=== PATIENT | female | born 1970 | race Caucasian/White ===

== ENCOUNTER → 2017-08-15 | Outpatient (CLI) | payer BC ==
--- NOTE | 2017-08-16 01:11 | WWHP ---
[facility] - HISTORY AND PHYSICAL CHIEF COMPLAINT: The patient is here for her routine gynecologic exam and mammogram. HPI: This is a 46-year-old, G2, P2, with an LMP of 07/24/2017. The patient's is status post vasectomy. She states her periods are monthly, but a little less regular than in the past. PAST MEDICAL HISTORY: Left leg hemangioma which has been there for many years. MEDICATIONS: None. ALLERGIES: No known drug allergies. PAST SURGICAL HISTORY: Two surgeries for left leg hemangioma and previous tonsillectomy. 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 SOCIAL HISTORY: She denies tobacco and drug use and has about 1 alcohol containing drink per week. 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 FAMILY HISTORY: She has 2 maternal aunts who had breast cancer and an uncle who had prostate cancer. Her son and daughter were recently tested positive for BRCA gene and this was done because of her 's family history. REVIEW OF SYSTEMS: She has gained about 7 pounds over the last year. She denies respiratory, cardiac or GI problems. PHYSICAL EXAMINATION: Blood pressure 116/80, height 5 feet 6-1/2 inches, weight 142 pounds, BMI 23. Temperature 98.1, pulse 61. This is a well-developed, well-nourished white female, who is alert and oriented x3, in no acute distress. HEENT: Within normal limits. NECK: Supple without mass or thyromegaly. CHEST AND LUNGS: Clear to auscultation. HEART: Regular rate and rhythm. Breasts are without mass or discharge. Axillary exam is negative for adenopathy. BACK: Negative for CVA tenderness. ABDOMEN: Soft, nontender, without palpable masses. PELVIC EXAM: Normal external genitalia. Cervix and vagina appear normal. There is no evidence of prolapse. The uterus is mid position, nongravid size and nontender. There are no palpable adnexal masses or tenderness. Rectal exam is negative for mass or tenderness and is negative for occult blood. EXTREMITIES: Nontender. IMPRESSION: 1. A 46-year-old gynecologically healthy female whose is status post vasectomy. 2. Possible early perimenopause with slight menstrual irregularity. PLAN: 1. Pap smear was deferred since she had a normal one less than 2 years ago. 2. Self breast examination was discussed. 3. Screening mammogram will be done today. 4. We have discussed her children's BRCA testing, which was positive. They are planning to go to [facility] for counseling to further discuss the implications of this testing.. The patient risk should not be impacted by her children's BRCA testing, but I have recommended that she have yearly mammograms. 5. She will return in 1 year. ROBERT / DAMIN: [id number] / IMER
--- NOTE | 2017-08-16 11:44 | MM ---
Reason for exam: screening (asymptomatic). Last mammogram was performed 1 year and 5 months ago. Physical Findings: A clinical breast exam by your physician is recommended on an annual basis and results should be correlated with mammographic findings. MG Screening Mammo w CAD Bilateral CC and MLO view(s) were taken. Prior study comparison: March 08, 2016, bilateral MG screening mammo w CAD. May 23, 2013, right diagnostic mammogram w/CAD. The breast tissue is heterogeneously dense. This may lower the sensitivity of mammography. Stable benign calcifications. There is no discrete abnormality. No significant changes when compared with prior studies. ASSESSMENT: Benign, BI-RAD 2 RECOMMENDATION: Routine screening mammogram of both breasts in 1 year.
== END | disposition home or self-care (01) ==
LOC: WWCWWP 15:55
PROVIDERS: ATTEND Obstetrics & Gynecology
DX: Z12.31 Encounter for screening mammogram for malignant neoplasm of breast (principal)
CPT/HCPCS: 77067

== ENCOUNTER → 2019-07-02 | Outpatient (CLI) | payer BC ==
[2019-07-02 15:25] VITALS: BP 117/79; PULSE 61; RESP 16; TEMP 97.9
--- NOTE | 2019-07-02 16:33 | P.HPOB ---
History of Present Illness H&P Date: 07/02/19 Chief Complaint: The patient is here for her routine gynecologic exam and ma mmogram. This is a 48-year-old with an LMP of 06/22/2019. The patient's is status post vasectomy. The patient states over the past 3 months she has noticed a significant decrease in her energy levels and this is unusual for her. When she is not active, she can feel very tired. She denies hot flashes or cold intolerance. She has also noticed a change in her bowel movements and they tend to be very narrow and "wormy". She denies constipation, but her bowel movements are"unsatisfying". She has been also experiencing some right lower quadrant and right pelvic pressure and fullness. She denies unusual stress, dietary changes or new supplements. She does drink coffee regularly, but this is not new. Menstrual periods have been regular every month, but she did skip a period about 3 months ago. Review of Systems She has lost about 8 pounds over the past year. She denies respiratory or cardiac problems. GI: She has noticed narrowing of her stools as in the HPI. Appetite has been good. Past Medical History Past Medical History: No Reported History Additional Past Medical History / Comment(s): Left leg hemangioma. History of Any Multi-Drug Resistant Organisms: None Reported Past Surgical History: Tonsillectomy Additional Past Surgical History / Comment(s): 2 surgeries for her left leg hemangioma. 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 - Past Family History Son(s) Additional Family Medical History / Comment(s): Son tested positive for BRCA gene and this was done because of her 's family history. Daughter(s) Additional Family Medical History / Comment(s): tested positive for BRCA gene and this was done because of her 's family history. Aunts Family Medical History: Cancer Additional Family Medical History / Comment(s): Breast cancer in 2 maternal aunts. Medications and Allergies Home Medications Medication Instructions Recorded Confirmed Type No Known Home Medications 07/02/19 07/02/19 History Allergies Allergy/AdvReac Type Severity Reaction Status Date / Time No Known Allergies Allergy Unverified 07/02/19 15:26 Exam Vital Signs Temp Pulse Resp BP Pulse Ox 07/02/19 15:23 97.9 F 61 16 117/79 99 Intake and Output 07/02/19 07/02/19 07/02/19 06:59 14:59 22:59 Other: Weight 60.781 kg Height 5 feet 6 inches, weight 134 pounds, BMI 21.6. This is a well-developed well-nourished white female who is alert and oriented times 3 in no acute distress. HEENT: Within normal limits. NECK: Supple without mass or thyromegaly. CHEST AND LUNGS: Clear to auscultation. HEART: Regular rate and rhythm. BREASTS: Are without mass or discharge. AXILLARY EXAM: Negative for adenopathy. BACK: Negative for CVA tenderness. ABDOMEN: Soft, nontender, without palpable masses. PELVIC EXAM: Normal external genitalia. Cervix and vagina appear normal. There is no unusual discharge. There is no evidence of prolapse. The uterus is midposition, nongravid size and nontender. There are no palpable adnexal masses or tenderness. RECTAL EXAM: Rectovaginal exam is negative for mass or tenderness and is negative for occult blood. EXTREMITIES: Nontender. IMPRESSION: 1. 48-year-old female whose is status post vasectomy with normal gynecologic exam. 2. Recent right lower quadrant and right pelvic pressure and fullness with no significant physical findings at this time. 3. Recent history of fatigue and decreased energy levels during the past 3 months. Differential diagnosis will include thyroid dysfunction, anemia and stress. PLAN: 1. Pap smear was performed. 2. Self breast awareness was discussed with the patient. 3. Screening mammogram will be done today. 4. Pelvic ultrasound will be scheduled. The order slip was given to the patient for this. 5. Lab tests will include TSH, CBC and comprehensive chem panel and screening cholesterol. 6. Because of the change in her bowel habits, I have also recommended that she consider colonoscopy. She will talk to Dr. Gilmore about arranging this. 7. She was advised to return in one year for her annual well woman exam and as needed.
[2019-07-02 16:56] LABS: Basophils # (A) 0.1 k/uL (0-0.2); Basophils % (A) 1 %; Eosinophils # (A) 0.2 k/uL (0-0.7); Eosinophils % (A) 2 %; HCT 44.9 % (34.0-46.0); HGB 14.3 gm/dL (11.4-16.0); Lymphocytes % (A) 27 %; MCH 29.6 pg (25.0-35.0); MCV 92.7 fL (80.0-100.0); Mean Platelet Volume 8.3; Monocytes # (A) 0.5 k/uL (0-1.0); Monocytes % (A) 6 %; Neutrophils # (A) 4.7 k/uL (1.3-7.7); Neutrophils % (A) 62 %; Platelet Count 438 k/uL (150-450); RBC 4.84 m/uL (3.80-5.40); WBC 7.6 k/uL (3.8-10.6)
[2019-07-03 00:06] LABS: African American GFR (CKD) 100.3 (60.0-200.0); Albumin 4.8 g/dL (3.80-4.90); Albumin/Globulin Ratio 2.4 (1.60-3.17); Calcium 9.7 mg/dL (8.7-10.3); Non-African American GFR(CKD) 86.6 (60.0-200.0); Potassium 4.4 mmol/L (3.5-5.5); Total Bilirubin 0.5 mg/dL (0.2-1.2); Total Protein 6.8 g/dL (6.2-8.2)
--- NOTE | 2019-07-04 13:48 | MM ---
Reason for exam: screening (asymptomatic). Last mammogram was performed 1 year and 10 months ago. Physical Findings: A clinical breast exam by your physician is recommended on an annual basis and results should be correlated with mammographic findings. MG Screening Mammo w CAD Bilateral CC and MLO view(s) were taken. Prior study comparison: August 15, 2017, bilateral MG screening mammo w CAD. March 08, 2016, bilateral MG screening mammo w CAD. The breast tissue is extremely dense which could obscure a lesion on mammography. Finding: There are fine grouped/clustered calcifications in the middle position of the left breast 4cm from the nipple. New finding since August 15, 2017 and March 08, 2016. ASSESSMENT: Incomplete: need additional imaging evaluation, BI-RAD 0 RECOMMENDATION: Special view mammogram of the left breast. [facility] will attempt to contact patient to return for supplemental views.
--- NOTE | 2019-07-10 09:55 | P.PN ---
Progress Note - Text Progress Note Date: 07/10/19 OUTPATIENT FOLLOW-UP NOTE TEST(S)/RESULTS: Test results from 07/02/2019 include negative Pap smear, normal blood tests including TSH, CBC, comprehensive chem panel, and total cholesterol. Screening mammogram was incomplete and left mammogram workup was recommended. METHOD OF NOTIFICATION: The patient was notified by phone. PATIENT COMMENTS: The patient has an appointment for her pelvic ultrasound on 07/10/2019 and the left breast mammogram workup on 07/16/2019. DIAGNOSIS: Normal Pap smear. Normal blood tests done for fatigue. Incomplete screening mammogram requiring left breast workup. DISCUSSION: I have stressed the importance of good nutrition and regular exercise. I have also recommended that she decrease caffeine intake gradually, if she does consume caffeine. If her symptoms of fatigue persist, she is to follow-up with Dr. Gilmore for this. PLAN: Her blood tests results will be forwarded to Dr. Gilmore. Await pelvic ultrasound and left breast workup which have been scheduled per the patient.
== END | disposition home or self-care (01) ==
LOC: WWCWWP 15:14
PROVIDERS: ATTEND Obstetrics & Gynecology
DX: Z12.31 Encounter for screening mammogram for malignant neoplasm of breast (principal); Z00.00 Encounter for general adult medical examination without abnormal findings; R53.83 Other fatigue
CPT/HCPCS: 36415; 77067; 80053; 82465; 84443; 85025

== ENCOUNTER → 2019-07-10 | Outpatient (CLI) | payer BC ==
--- NOTE | 2019-07-10 17:15 | US ---
EXAMINATION TYPE: US pelvic complete DATE OF EXAM: 07/10/2019 COMPARISON: NONE CLINICAL HISTORY: R10.31 RLQ Pain, R10.2 Pelvic pain. Intermittent RLQ pain x 2 months, irregular cyc les, 2, para 2 TECHNIQUE: . Transabdominal sonographic images of the pelvis were acquired. Date of LMP: 2 weeks ago EXAM MEASUREMENTS: Uterus: 8.1 x 3.7 x 4.1 cm Endometrial Stripe: 0.5 cm Right Ovary: 2.9 x 1.6 x 2.8 cm Left Ovary: 1.9 x 1.0 x 1.5 cm 1. Uterus: anteverted 2. Endometrium: wnl 3. Right Ovary: 1.6 x 1.3 x 1.6cm cyst 4. Left Ovary: wnl 5. Bilateral Adnexa: wnl 6. Posterior cul-de-sac: wnl IMPRESSION: No significant abnormality evident. Small right ovarian follicle as described.
== END | disposition home or self-care (01) ==
LOC: RADUSWWP 16:17
PROVIDERS: ATTEND Obstetrics & Gynecology
DX: R10.2 Pelvic and perineal pain (principal); R10.31 Right lower quadrant pain
CPT/HCPCS: 76856

== ENCOUNTER → 2019-07-16 | Outpatient (CLI) | payer BC ==
--- NOTE | 2019-07-17 08:59 | MM ---
Reason for exam: additional evaluation requested from abnormal screening. Last mammogram was performed less than 1 month ago. Physical Findings: Nurse did not find any significant physical abnormalities on exam. MG Work Up Mamm w CAD LT CC with magnification, LM with magnification, and LM view(s) were taken of the left breast. Prior study comparison: July 02, 2019, bilateral MG screening mammo w CAD. August 15, 2017, bilateral MG screening mammo w CAD. The breast tissue is heterogeneously dense. This may lower the sensitivity of mammography. There are two groups of left calcifications both likely unchanged from 2016. The first is 2mm in the upper outer quadrant at middle depth and the second is upper outer quadrant measuring 3mm at middle posterior depth. Precautionary 6 month follow up mammogram is recommended. These results were verbally communicated with the patient and result sheet given to the patient on 07/16/19. ASSESSMENT: Probably benign, BI-RAD 3 RECOMMENDATION: Follow-up diagnostic mammogram of the left breast in 6 months.
== END | disposition home or self-care (01) ==
LOC: RADMAMWWP 14:17
PROVIDERS: ATTEND Obstetrics & Gynecology
DX: R92.8 Other abnormal and inconclusive findings on diagnostic imaging of breast (principal)
CPT/HCPCS: 77065

== ENCOUNTER → 2019-07-24 | Outpatient (CLI) | payer BC | END | disposition home or self-care (01) | LOC: LABWHC1 16:17 | PROVIDERS: ATTEND Family Medicine | DX: Z12.39 Encounter for other screening for malignant neoplasm of breast (principal); Z84.81 Family history of carrier of genetic disease | CPT/HCPCS: 36415 ==

== ENCOUNTER 2020-06-02 10:01 | Day surgery (SDC) | payer BC ==
[2020-05-29 13:25] VITALS: BMI 21.7
[~2020-06-02 10:01] MED LIST: LACTATED RINGERS 1,000 ML IV SCH; LIDOCAINE 1% (10MG/ML) FOR IV START INTRADERMA PRN
[2020-06-02] MEDS ORDERED: PROPOFOL 10 MG/ML 20 ML VIAL IV ONE (10:32)
--- NOTE | 2020-06-02 10:36 | P.GSHP ---
History of Present Illness H&P Date: 06/02/20 Chief Complaint: Colon cancer screening Patient here today for screening colonoscopy. She has not had 1 previously. No bowel complaints. No family history of colon cancer. Past Medical History Past Medical History: No Reported History Additional Past Medical History / Comment(s): Left leg hemangioma. History of Any Multi-Drug Resistant Organisms: None Reported Past Surgical History: Tonsillectomy Additional Past Surgical History / Comment(s): 2 surgeries for her left leg hemangioma. Past Anesthesia/Blood Transfusion Reactions: Postoperative Nausea & Vomiting (PONV) Smoking Status: Never smoker - Past Family History Son(s) Additional Family Medical History / Comment(s): Son tested positive for BRCA gene and this was done because of her 's family history. Daughter(s) Additional Family Medical History / Comment(s): tested positive for BRCA gene and this was done because of her 's family history. Aunts Family Medical History: Cancer Additional Family Medical History / Comment(s): Breast cancer in 2 maternal aunts. Medications and Allergies Home Medications Medication Instructions Recorded Confirmed Type No Known Home Medications 07/02/19 06/02/20 History Allergies Allergy/AdvReac Type Severity Reaction Status Date / Time No Known Allergies Allergy Unverified 06/02/20 10:21 Surgical - Exam Vital Signs Temp Pulse Resp BP Pulse Ox 97.6 F 58 L 16 129/78 98 06/02/20 10:29 06/02/20 10:29 06/02/20 10:29 06/02/20 10:29 06/02/20 10:29 Physical exam: General: Well-developed, well-nourished HEENT: Normocephalic, sclerae nonicteric Abdomen: Nontender, nondistended Extremities: No edema Neuro: Alert and oriented Assessment and Plan (1) Colon cancer screening Narrative/Plan: Will proceed with colonoscopy at this time Current Visit: Yes Status: Acute Code(s): Z12.11 - ENCOUNTER FOR SCREENING FOR MALIGNANT NEOPLASM OF COLON SNOMED Code(s): 242187793
[2020-06-02 11:00] VITALS: RESP 16; TEMP 97.6
--- NOTE | 2020-06-02 11:10 | P.PCN ---
Date of Procedure: 06/02/20 Procedure(s) Performed: PREOPERATIVE DIAGNOSIS: Colon cancer screening POSTOPERATIVE DIAGNOSIS: Ascending colon polyp, rectal polyp PROCEDURE: Colonoscopy with snare polypectomy and biopsy ANESTHESIA: MAC SURGEON: Ray Boles M.D. SPECIMENS: A descending colon polyp, rectal polyp ENDOSCOPIC PROCEDURE: The patient was placed on the endoscopy table in the left decubitus position. The Olympus colonoscope was inserted into the anus and passed under direct visualization to the base of the cecum. The appendiceal orifice was visualized. From that point the scope was slowly withdrawn inspecting all surfaces carefully. There were no neoplastic inflammatory or polypoid lesions in the cecum itself. In the proximal ascending colon a small polyp was seen and removed using the cold biopsy forceps. There was a small hematoma that formed at the site and a single firing of a disposable clip was placed at that location. No bleeding was seen. The remainder of the ascending transverse descending and sigmoid colon appeared normal. In the rectum a pedunculated polyp measuring 1 cm with a narrow stalk was removed at 5 cm from the dentate line. This was removed using the snare with cautery technique. No bleeding was seen. The scope was withdrawn. There was no visible diverticulosis through the procedure. Digital rectal examination was normal. The patient was taken to the recovery room in stable condition per anesthesia guidelines. RECOMMENDATIONS: Await biopsy results.
[2020-06-02 11:17] VITALS: BP 126/79; PULSE 52
== END 2020-06-02 11:29 | disposition home or self-care (01) ==
LOC: ORWHC2ENDO 10:01
PROVIDERS: ATTEND Surgery
DX: Z12.11 Encounter for screening for malignant neoplasm of colon (principal); D12.8 Benign neoplasm of rectum; K63.5 Polyp of colon; S36.520A Contusion of ascending [right] colon, initial encounter; Z98.890 Other specified postprocedural states; Z85.3 Personal history of malignant neoplasm of breast
CPT/HCPCS: 45385; 45380; 81025; 88305; J2704; 45382

== ENCOUNTER → 2022-01-25 | Outpatient (CLI) | payer BC ==
--- NOTE | 2022-01-26 14:27 | MM ---
Reason for Exam: Screening (asymptomatic). Last mammogram was performed 2 year(s) and 7 month(s) ago. Patient History: Menarche at age 12. First Full-Term at age 29. Late child-bearing (after 29). Patient used Hormonal Contraceptives for 4 years. Last menstrual period: 11/17/2020 Risk Values: Shelley 5 year model risk: 1.5%. NCI Lifetime model risk: 11.8%. Prior Study Comparison: 01/07/2011 Bilateral Screening Mammogram, [facility]. 09/26/2012 Bilateral Screening Mammogram, [facility]. 03/08/2016 Bilateral Screening Mammogram, [facility]. 08/15/2017 Bilateral Screening Mammogram, [facility]. 07/02/2019 Bilateral Screening Mammogram, [facility]. 07/16/2019 Left Diagnostic Mammogram, [facility]. Tissue Density: The breast tissue is heterogeneously dense. This may lower the sensitivity of mammography. Findings: Analyzed By CAD. There regional punctate calcifications within the left breast in 2 groups. Additional evaluation with magnification views is recommended. No suspicious groups of microcalcifications, spiculated or lobular masses, architectural distortion or other secondary signs of malignancy are mammographically apparent. Overall Assessment: Incomplete: need additional imaging evaluation, BI-RAD 0 Management: Diagnostic Mammogram of the left breast. A negative mammogram report should not preclude additional follow up of suspicious palpable abnormalities. Patient should continue monthly self breast exam. A clinical breast exam by your physician is recommended on an annual basis and results should be correlated with mammographic findings. Electronically signed and approved by: Rigo Sheriff D.O. Radiologis
== END | disposition home or self-care (01) ==
LOC: RADMAMWWP 07:24
PROVIDERS: ATTEND Family Medicine
DX: Z12.31 Encounter for screening mammogram for malignant neoplasm of breast (principal)
CPT/HCPCS: 77067

== ENCOUNTER → 2022-01-28 | Outpatient (CLI) | payer BC ==
--- NOTE | 2022-01-28 15:51 | MM ---
Reason for Exam: Additional evaluation requested from abnormal screening. Last screening mammogram was performed less than 1 month ago. Patient History: Menarche at age 12. First Full-Term at age 29. Late child-bearing (after 29). Postmenopausal. Patient used Hormonal Contraceptives for 4 years. Maternal aunt had breast cancer, age 68. Risk Values: Shelley 5 year model risk: 1.5%. NCI Lifetime model risk: 11.8%. Prior Study Comparison: 07/02/2019 Bilateral Screening Mammogram, [facility]. 07/16/2019 Left Diagnostic Mammogram, [facility]. 01/25/2022 Bilateral MG screening mammo w CAD, [facility]. Tissue Density: Left: The breast tissue is heterogeneously dense. This may lower the sensitivity of mammography. Findings: Analyzed By CAD. There are increasing microcalcifications upper outer left breast. Tissue diagnosis is recommended. Overall Assessment: Suspicious, BI-RAD 4 Management: Stereotactic Core Biopsy of the left breast. A clinical breast exam by your physician is recommended on an annual basis and results should be correlated with mammographic findings. This exam should not preclude additional follow-up of suspicious palpable abnormalities. Results were given to the patient verbally at the time of exam. Electronically signed and approved by: Brant Rehman M.D. Radiologis
== END | disposition home or self-care (01) ==
LOC: RADMAMWWP 08:16
PROVIDERS: ATTEND Family Medicine
DX: R92.8 Other abnormal and inconclusive findings on diagnostic imaging of breast (principal)
CPT/HCPCS: 77065

== ENCOUNTER → 2022-02-07 | Day surgery (SDC) | payer BC ==
[2022-02-07 07:39] VITALS: RESP 12
[2022-02-07 08:27] VITALS: BP 130/80; PULSE 54; TEMP 98.4
--- NOTE | 2022-02-10 14:24 | MM ---
Risk Values: Shelley 5 year model risk: 1.5%. NCI Lifetime model risk: 11.8%. Prior Study Comparison: 07/16/2019 Left Diagnostic Mammogram, [facility]. 01/25/2022 Bilateral MG screening mammo w CAD, [facility]. 01/28/2022 Left MG work up mamm w CAD , [facility]. Pathology Description: Location: upper outer quadrant. Approach: CC FA Needle Type: Eviva Cores: 6 Skin Nicks: 1 Gauge: 9 The procedure of stereotactic guided core biopsy was explained to the patient. Benefits, alternatives, and risks were discussed. An informed consent was then obtained. The shortness pathway for biopsy was chosen. [facility]. I performed the localization, then surgeon, Dr. Jackson performed the remainder of the procedure. A vacuum assisted biopsy gun was used to obtain multiple core samples. The patient tolerated the procedure well without any immediate complication. The patient was kept in the radiology department for short stay after the procedure and then discharged home in stable condition. Targeted calcifications are identified in specimen mammogram. Post biopsy mammogram shows the clip to appear in satisfactory position relative to the targeted area of concern on the preprocedure images. Impression: SUCCESSFUL, UNCOMPLICATED STEREOTACTIC GUIDED CORE BIOPSY OF AREA OF CONCERN IN THE left BREAST. Pathology Results: Result: Benign, Fibroadenomatoid hyperplasia. LEFT BREAST, STEREOTACTIC CORE BIOPSY: Benign fibroadenomatoid stromal hyperplasia with fibrocystic change, apocrine metaplasia, columnar cell change and focal microcalcification. Overall Assessment: Benign Management: Diagnostic Mammogram of the left breast in 6 months. Electronically signed and approved by: Bc Jackson DO
== END ==
LOC: RADMAMWWP 07:16
PROVIDERS: ATTEND Surgery
DX: N60.82 Other benign mammary dysplasias of left breast (principal)
CPT/HCPCS: 19081; 88305; A4648; J2001

== ENCOUNTER → 2022-02-22 | Outpatient (CLI) | payer BC ==
[2022-02-23 07:06] VITALS: BP 130/79; PULSE 66; RESP 17; TEMP 97.6
--- NOTE | 2022-02-23 08:10 | WWHP ---
[facility] - HISTORY AND PHYSICAL CHIEF COMPLAINT: The patient is here for her routine gynecologic exam. HISTORY OF PRESENT ILLNESS: This is a 51-year-old, G2, P2 with an LMP of January 2021. The patient has been experiencing significant hot flashes and night sweats. She states they have been bad during the past year. She states her menstrual periods started spacing out approximately 2-1/2 years ago and gradually continued to space out until last year when they stopped. She denies any vaginal bleeding for more than 12 months. She also has been experiencing mood changes without depression along with the vasomotor symptoms. Her is status post vasectomy. She is complaining of vaginal dryness with sexual intercourse, even with lubricants. PAST MEDICAL HISTORY: History of left leg hemangioma and past medical history is otherwise unremarkable. MEDICATIONS: None. ALLERGIES: No known drug allergies. PAST SURGICAL HISTORY: Tonsillectomy in the past as well as 2 surgeries for the left leg hemangioma. Left breast biopsy in January of 2022 and this was benign. 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 She has tested negative for BRCA gene mutations. SOCIAL HISTORY: She denies tobacco and drug use. She has 2 to 4 alcoholic drinks per month. 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 FAMILY HISTORY: Her son and daughter tested positive for the BRCA gene mutation. This was done because of her 's family history. She also has 2 maternal aunts who had breast cancer. REVIEW OF SYSTEMS: She has gained 3 pounds over the past 2 years. She denies respiratory or cardiac problems. GI: She has had fairly frequent bowel movements, which have been loose recently. PHYSICAL EXAMINATION: GENERAL: This is a well-developed, well-nourished, white female, who is alert and oriented x3, in no acute distress. VITAL SIGNS: Blood pressure 130/79, height 5 feet 6 inches, weight 137 pounds, BMI 22, temperature 97.7, pulse 66, and pulse oximeter 98%. HEENT: Within normal limits. NECK: Supple without mass or thyromegaly. CHEST AND LUNGS: Clear to auscultation. HEART: Regular rate and rhythm. BACK: Negative for CVA tenderness. ABDOMEN: Soft, nontender, without palpable masses. PELVIC: Normal external genitalia with mild atrophy. Cervix and vagina reveals mild atrophy and is normal in appearance. There is no unusual discharge. There is no evidence of prolapse. The uterus is mid position, nongravid size, and nontender. There are no palpable adnexal masses or tenderness. RECTOVAGINAL: Negative for mass or tenderness and is negative for occult blood. EXTREMITIES: Nontender. IMPRESSION: 1. A 51-year-old menopausal female, whose is status post vasectomy with normal gynecologic exam. 2. [id number] menopausal symptoms including vasomotor symptoms and vaginal dryness. PLAN: 1. Pap smear co-test was performed. 2. Self breast examination was discussed as well as symptoms associated with inflammatory breast cancer. 3. Left diagnostic mammogram will be due in 6 months. This has been recommended by Dr. Boles, her surgeon did a breast biopsy recently. She has an order slip from Dr. Boles. 4. We have had a long discussion regarding her menopausal symptoms and possible treatments. We have discussed low-dose HRT, SSRI treatment as well as no treatment at all. We have discussed the risks associated with HRT including a possible increased risk for heart attack, stroke, and breast cancer. After a long discussion, she would like a trial of Premarin vaginal cream for the vaginal dryness associated with her menopause. One sample tube of Premarin vaginal cream was given to the patient. She is to insert 1 g into the vagina 2 times weekly. The prescription for this will be called in to [facility] in [place]. 5. Osteoporosis prevention was discussed. 6. She has completed her COVID vaccination series and did receive a booster. 7. She will return in 1 year or as needed. MMODL / IJN: [id number] /
== END ==
LOC: WWCWWP 21:03
PROVIDERS: ATTEND Obstetrics & Gynecology
DX: Z53.9 Procedure and treatment not carried out, unspecified reason (principal)

== ENCOUNTER → 2023-08-16 | Outpatient (CLI) | payer BC ==
--- NOTE | 2023-08-16 08:38 | MM ---
Reason for Exam: Additional evaluation requested from prior study. Last mammogram was performed 1 year(s) and 6 month(s) ago. Patient History: Menarche at age 12. First Full-Term at age 29. Late child-bearing (after 29). Postmenopausal. Patient has history of breast feeding. Previous Hyperplasia w/o Atypia at age 51. Patient used Hormonal Contraceptives for 4 years. 02/07/2022, Benign MG stereo VAD BX LT on the left side. Maternal aunt had breast cancer, age 68. Mother had breast cancer, age 80. Risk Values: Shelley 5 year model risk: 2.6%. NCI Lifetime model risk: 19.1%. Prior Study Comparison: 03/08/2016 Bilateral Screening Mammogram, [facility]. 08/15/2017 Bilateral Screening Mammogram, [facility]. 07/02/2019 Bilateral Screening Mammogram, [facility]. 07/16/2019 Left Diagnostic Mammogram, [facility]. 01/25/2022 Bilateral MG screening mammo w CAD, [facility]. 01/28/2022 Left MG work up mamm w CAD LT, [facility]. 08/11/2022 Left MG diagnostic mammo LT w CAD, [facility]. Tissue Density: The breast tissue is heterogeneously dense. This may lower the sensitivity of mammography. Findings: Analyzed By CAD. The pattern is symmetrical. Prior core marker is on the left. There are scattered and regional punctate calcifications on the left which are stable. There are loosely calcifications in the subareolar right breast 1.6 cm from the nipple outer quadrant. On magnification a cluster of calcifications is not identified. This does appear to be change from comparison. Short-term follow-up is recommended with magnification views right breast 6 months. Within the left breast, no spiculated or lobular masses, architectural distortion or other secondary signs of malignancy are mammographically apparent. Overall Assessment: Probably benign, BI-RAD 3 Management: Diagnostic Mammogram of the right breast in 6 months. A negative mammogram report should not preclude additional follow up of suspicious palpable abnormalities. Patient should continue monthly self breast exam. A clinical breast exam by your physician is recommended on an annual basis and results should be correlated with mammographic findings. Electronically signed and approved by: Rigo Sheriff D.O. Radiologis
== END | disposition home or self-care (01) ==
LOC: RADMAMWWP 06:45
PROVIDERS: ATTEND Surgery
DX: R92.333 Mammographic heterogeneous density, bilateral breasts (principal); Z78.0 Asymptomatic menopausal state; Z80.3 Family history of malignant neoplasm of breast
CPT/HCPCS: 77062; 77066

== ENCOUNTER → 2023-09-08 | Outpatient (CLI) | payer BC ==
[2023-09-08 17:41] LABS: Estradiol <20.0 pg/mL
[2023-09-08 17:57] LABS: Follicle Stimulating Hormone 65.5 mIU/mL
== END | disposition home or self-care (01) ==
LOC: LABWHC1 09:28
PROVIDERS: ATTEND Obstetrics & Gynecology
DX: Z00.00 Encounter for general adult medical examination without abnormal findings (principal); N95.1 Menopausal and female climacteric states
CPT/HCPCS: 36415; 82670; 83001; 84144; 84402; 84403

== ENCOUNTER → 2024-06-25 | Outpatient (CLI) | payer BC ==
[2024-06-26 02:42] LABS: Estradiol 45.2 pg/mL
[2024-06-26 02:45] LABS: Follicle Stimulating Hormone 33.5 mIU/mL
== END | disposition home or self-care (01) ==
LOC: LABWHC1 16:28
PROVIDERS: ATTEND Obstetrics & Gynecology
DX: N95.1 Menopausal and female climacteric states (principal)
CPT/HCPCS: 36415; 82670; 83001; 84144; 84402; 84403

== ENCOUNTER → 2024-12-26 | Outpatient (CLI) | payer BC ==
--- NOTE | 2024-12-27 07:41 | MM ---
Reason for Exam: Screening (asymptomatic). Last mammogram was performed 1 year(s) and 5 month(s) ago. Patient History: Menarche at age 12. First Full-Term at age 29. Late child-bearing (after 29). Postmenopausal. Patient has history of breast feeding. Previous Hyperplasia w/o Atypia at age 51. Currently using Hormonal Contraceptives, for 4 years. 02/07/2022, Benign MG stereo VAD BX LT on the left side. Maternal aunt had breast cancer, age 68. Mother had breast cancer, age 80. Risk Values: Shelley 5 year model risk: 2.8%. NCI Lifetime model risk: 18.5%. Prior Study Comparison: 01/28/2022 Left MG work up mamm w CAD LT, [facility]. 08/11/2022 Left MG diagnostic mammo LT w CAD, [facility]. 08/16/2023 Bilateral MG 3D diag mammo w/cad LEILANI, [facility]. Tissue Density: The breasts are heterogeneously dense, which may obscure small masses. Findings: Analyzed By CAD. Mammotome biopsy clip in the left breast is redemonstrated. There is no suspicious group of microcalcifications or new suspicious mass in either breast. Overall Assessment: Benign, BI-RAD 2 Management: Screening Mammogram of both breasts in 1 year. . Patient should continue monthly self-breast exams. A clinical breast exam by your physician is recommended on an annual basis. This exam should not preclude additional follow-up of suspicious palpable abnormalities. Note on Shelley scores and lifetime risk: 1. A Shelley score greater than 3% is considered moderate risk. If this is the case, consider specialist referral to assess eligibility for a risk reducing agent. 2. If overall lifetime risk for the development of breast cancer is 20% or higher, the patient may qualify for future screening with alternating mammogram and breast MRI. [facility], , 12/27/2024 7:38 AM. Electronically signed and approved by: Alejandro Cai M.D.
== END | disposition home or self-care (01) ==
LOC: RADMAMWWP 15:49
PROVIDERS: ATTEND Obstetrics & Gynecology
DX: Z12.31 Encounter for screening mammogram for malignant neoplasm of breast (principal); R92.333 Mammographic heterogeneous density, bilateral breasts; Z78.0 Asymptomatic menopausal state; Z80.3 Family history of malignant neoplasm of breast
CPT/HCPCS: 77063; 77067